=== PATIENT | female | born 1995 | race Caucasian/White ===

== ENCOUNTER 2018-01-31 21:22 | Emergency (ER) | payer BC ==
--- NOTE | 2018-01-31 22:46 | ER Document Report ---
ED Medical Screen (RME) - General Chief Complaint: Abdominal Cramping Stated Complaint: SEVERE CRAMPING/BLEEDING Time Seen by Provider: 01/31/18 22:42 Notes: Patient is a 22-year-old female presenting to the emergency department complaining of vaginal bleeding. Patient states she was at [facility] and they told her she was 5 weeks . States she had some minor abdominal cramping yesterday and today noticed some vaginal bleeding. Patient states is a very scant amount of vaginal bleeding stating she has only used 1 pad all day. Patient denies fever, dysuria, back pain. Physical exam: Abdomen soft nontender, minor suprapubic tenderness. No CVA tenderness bilaterally. I have greeted and performed a rapid initial assessment of this patient. A comprehensive ED assessment and evaluation of the patient, analysis of test results and completion of the medical decision making process will be conducted by additional ED providers. - Related Data Allergies/Adverse Reactions: No Known Allergies Allergy (Unverified 01/31/18 21:27) Past Medical History - Social History Frequency of alcohol use: None Drug Abuse: None Renal/ Medical History: Denies: Hx Peritoneal Dialysis Past Surgical History: Reports: Hx Appendectomy Physical Exam - Vital signs Vitals: Temp Pulse BP Pulse Ox 98.5 F 80 146/72 H 100 01/31/18 21:41 01/31/18 21:41 01/31/18 21:41 01/31/18 21:41 Course - Vital Signs Vital signs: Temp Pulse Resp BP Pulse Ox 98.5 F 80 146/72 H 100 01/31/18 21:41 01/31/18 21:41 01/31/18 21:41 01/31/18 21:41
[2018-01-31 23:06] LABS: ABSOLUTE BASOPHILS # (AUTO) 0.1 10^3/uL (0.0-0.2); ABSOLUTE EOSINOPHILS # (AUTO) 0.1 10^3/uL (0.0-0.6); ABSOLUTE LYMPHOCYTES (AUTO) 2.1 10^3/uL (0.5-4.7); ABSOLUTE MONOCYTES (AUTO) 0.7 10^3/uL (0.1-1.4); ABSOLUTE NEUT (AUTO) 6.1 10^3/uL (1.7-8.2); BASOPHILS % (AUTO) 0.6 % (0-2); EOSINOPHILS % (AUTO) 1.4 % (0-6); HEMATOCRIT 39.8 % (36.0-47.0); HEMOGLOBIN 13.8 g/dL (12.0-15.5); LYMPHOCYTES % (AUTO) 22.6 % (13-45); MEAN CORPUSCULAR HEMOGLOBIN 31.8 pg (27.0-33.4); MEAN CORPUSCULAR HGB CONC 34.7 g/dL (32.0-36.0); MEAN CORPUSCULAR VOLUME 92 fl (80-97); MONOCYTES % (AUTO) 8.1 % (3-13); PLATELET COUNT 336 10^3/uL (150-450); RED BLOOD COUNT 4.33 10^6/uL (3.72-5.28); RED CELL DISTRIBUTION WIDTH 12.1 % (11.5-14.0); SEGMENTED NEUTROPHILS % (AUTO) 67.3 % (42-78); TOTAL CELLS COUNTED % (AUTO) 100 %; WHITE BLOOD COUNT 9.1 10^3/uL (4.0-10.5)
[2018-01-31 23:18] LABS: APPEARANCE,URINE SLIGHTLY-CLOUDY; BILIRUBIN,URINE NEGATIVE (NEGATIVE); COLOR,URINE YELLOW; GLUCOSE, URINE NEGATIVE (NEGATIVE); KETONES,URINE NEGATIVE (NEGATIVE); LEUKOCYTE ESTERASE,URINE MODERATE (NEGATIVE); NITRITE,URINE NEGATIVE (NEGATIVE); PROTEIN,URINE 30 mg/dL (NEGATIVE); URINE SPECIFIC GRAVITY 1.006; UROBILINOGEN,URINE NEGATIVE mg/dL (<2.0)
--- NOTE | 2018-02-01 00:04 | ER Document Report ---
ED General - General Chief Complaint: Abdominal Cramping Stated Complaint: SEVERE CRAMPING/BLEEDING Time Seen by Provider: 01/31/18 22:42 Notes: Patient is a pleasant 22-year-old female presents with complaint of vaginal bleeding . This is her first . She is approximately between 5-6 weeks . She started some cramping yesterday and then today started having some vaginal bleeding. Some passing of clots. Said bleeding continues to slowly gradually worsened. Some passing of what she did looks almost like tissue. No fevers. No vomiting. No dysuria. No back pain. No foul-smelling discharge. No other complaints at this time. She is otherwise healthy. She has a known heart murmur. Last menstrual period was December 21 but she said it was abnormal and that was only 2 days in length. Patient had 2+ urine test with her doctor last week that were both urine test. - Related Data Allergies/Adverse Reactions: No Known Allergies Allergy (Unverified 01/31/18 21:27) Past Medical History - Social History Smoking Status: Never Smoker Frequency of alcohol use: None Drug Abuse: None Family History: Reviewed & Not Pertinent Patient has suicidal ideation: No Patient has homicidal ideation: No Renal/ Medical History: Denies: Hx Peritoneal Dialysis Past Surgical History: Reports: Hx Appendectomy Review of Systems - Review of Systems Notes: My Normal Review Basic REVIEW OF SYSTEMS: CONSTITUTIONAL : Denies fever, chills, or sweats. Denies recent illness. EENT: Denies eye, ear, throat, or mouth pain or symptoms. Denies nasal or sinus congestion. RESPIRATORY: Denies cough, cold, or chest congestion. Denies shortness of breath, difficulty breathing, or wheezing. GASTROINTESTINAL: Crampy abdominal pain. Some nausea GENITOURINARY: Denies difficulty urinating, painful urination, burning, frequency, or blood in urine. FEMALE GENITOURINARY: Vaginal bleeding. Currently . MUSCULOSKELETAL: Denies neck or back pain or joint pain or swelling. SKIN: Denies rash or skin lesions. NEUROLOGICAL: Denies altered mental status or loss of consciousness. ALL OTHER SYSTEMS REVIEWED AND NEGATIVE. Physical Exam - Vital signs Vitals: Temp Pulse BP Pulse Ox 98.5 F 80 146/72 H 100 01/31/18 21:41 01/31/18 21:41 01/31/18 21:41 01/31/18 21:41 - Notes Notes: General Appearance: Well nourished, alert, cooperative, no acute distress, no obvious discomfort. Well-appearing. Vitals: reviewed, See vital signs table. Eyes: PERRL, EOMI, Conjuctiva clear Lungs: No wheezing, No rales, No rhonci, No accessory muscle use, good air exchange bilaterally. Heart: Normal rate, Regular rythm, systolic heart murmur. Abdomen: Normal BS, soft, No rigidity, very mild suprapubic abdominal tenderness to palpation. Remainder of abdomen is nontender. Extremities: no edema. Skin: warm, dry, appropriate color, no rash Neuro: speech clear, oriented x 3, normal affect, responds appropriately to questions. Course - Re-evaluation Re-evalutation: 02/01/18 01:28 Patient looks well. I feel the patient is safe to be discharged home. Her pain is a test here is actually negative. I still suspect that she most likely was based on her 2+ test with her doctor last week and her delayed period. I suspect she probably had a very early that did not progress and that is why she developed a cramping and bleeding that she is having now. This is probably why her hCG level has returned to a negative range. Patient's urinalysis did show some signs of infection that she did have some white blood cells in the urine; however, I suspect this is contaminant from the fact that she has vaginal bleeding and this is on a catheterized specimen. She has [place] no urinary symptoms whatsoever and therefore I do not think treatment with antibiotics is needed at this time. I explained to the patient and she is understanding of this. I informed her to return here immediately if she does develop any urinary symptoms such as pain or burning with urination, fevers, or worsening pain. Patient encouraged to avoid sexual activity for 4-6 weeks and to follow-up with your doctor next week for reevaluation. She is to return to the ER immediately if she has heavy bleeding , dizziness, lightheadedness, fevers, or feels unwell. Patient agrees with plan and will be discharged home. Dictation of this chart was performed using voice recognition software; therefore, there may be some unintended grammatical errors. - Vital Signs Vital signs: Temp Pulse Resp BP Pulse Ox 98.5 F 80 146/72 H 100 11/30/18 21:41 01/31/18 21:41 01/31/18 21:41 01/31/18 21:41 - Laboratory Result Diagrams: 01/31/18 22:52 01/31/18 23:59 Laboratory results interpreted by me: 01/31/18 01/31/18 22:52 23:59 Total Protein 8.6 H Urine Protein 30 H Urine Blood LARGE H Ur Leukocyte Esterase MODERATE H Discharge - Discharge Clinical Impression: Vaginal bleeding, possible early miscarriage Condition: Good Disposition: HOME, SELF-CARE Additional Instructions: I suspect you had a very early that did not progress and now you are having vaginal bleeding because of that. Please follow up with your doctor next week for reevaluation. Take Tylenol and Motrin for pain. Please avoid sexual activity for 4-6 weeks. Please return to the ER immediately if you have fevers, worsening pain, heavy bleeding leading to dizziness, vomiting, abnormal vaginal discharge, or any pain with urination.
[2018-02-01 00:29] LABS: ALANINE AMINOTRANSFERASE 17 U/L (9-52); ALKALINE PHOSPHATASE 80 U/L (38-126); ANION GAP 14 (5-19); ASPARTATE AMINO TRANSFERASE 24 U/L (14-36); BILIRUBIN,DIRECT 0.1 mg/dL (0.0-0.4); BILIRUBIN,TOTAL 0.4 mg/dL (0.2-1.3); BLOOD UREA NITROGEN 13 mg/dL (7-20); CALCIUM 10.1 mg/dL (8.4-10.2); CARBON DIOXIDE 27 mmol/L (22-30); CHLORIDE 103 mmol/L (98-107); GLUCOSE 102 mg/dL (75-110); POTASSIUM 4.4 mmol/L (3.6-5.0); SODIUM 143.8 mmol/L (137-145); TOTAL PROTEIN 8.6 g/dL (6.3-8.2)
--- NOTE | 2018-02-01 00:41 | RADIOLOGY REPORT (SQ) ---
EXAM DESCRIPTION: US TRANSVAGINAL COMPLETED DATE/TME: 01/31/2018 22:44 CLINICAL HISTORY: 22 years, Female, 5 weeks preg, bleeding COMPARISON: None. TECHNIQUE: Transverse and longitudinal transvaginal sonographic images of the pelvis and a first trimester patient. LIMITATIONS: None. FINDINGS: The uterus measures 7.1 x 4.2 x 3.1 cm. The myometrium is homogenous. The endometrium thickness is 6.4 mm. However there is no visible intrauterine gestational sac. The right ovary measures 2.4 x 1.4 x 1.5 cm. The left ovary measures 2.5 x 1.5 x 1.6 cm. Normal flow to the ovaries. Bilateral ovarian follicles. No solid adnexal mass. No free fluid IMPRESSION: There is no intrauterine gestational sac at this time. Correlate with beta hCG levels. Close obstetric follow-up recommended copyright 2010 [employer]- All Rights Reserved
[2018-02-01 02:04] VITALS: BP 129/78
== END 2018-02-01 01:56 | disposition home or self-care (01) ==
LOC: ER 21:22
DX: O20.9 Hemorrhage in early pregnancy, unspecified (principal); Z3A.01 Less than 8 weeks gestation of pregnancy
CPT/HCPCS: 36415; 76817; 80053; 81001; 84702; 85025; 86900; 86901; 93976; 99284